=== PATIENT | female | born 1955 | race American Indian/Alaskan Native ===

== ENCOUNTER 2019-04-29 15:15 | Outpatient (CLI) | payer MEDICAID ==
--- NOTE | 2019-04-30 08:43 | Mammography Report ---
BILATERAL DIGITAL SCREENING MAMMOGRAM WITH CAD INDICATION: Routine screening mammography. Breast cancer survivor status post left partial mastectomy for DCIS 2017. TECHNIQUE: Digital bilateral 2D mammography was obtained in the craniocaudal and mediolateral obliq ue projections. This examination was interpreted with the benefit of Computer-Aided Detection analysi s. COMPARISON: 11/15/2017 bilateral screening mammogram and 02/10/2018 and 12/31/2017 left diagnostic mammogr ams from [place], [place] FINDINGS: Breast Density: The breasts are heterogeneously dense, which may obscure small masses. A left surgical excision with removal of 2 biopsy clips has been performed since the last mammogram. 2 left outer biopsy clips remain. No mass, suspicious architectural distortion or suspicious calcific ations. Mild right lower inner postsurgical scar. A few bilateral 9 calcifications. IMPRESSION:No mammographic evidence of malignancy. BI-RADS Category 2: Benign. No mammographic evidence of malignancy. Recommend routine screening ma mmography in one year. A "normal" or negative report should not discourage follow up or biopsy of a clinically significant f inding. A written summary of these findings will be mailed to the patient. The patient will be entered into a mammography reporting system which will generate a reminder letter for the patient's next appointmen t at the appropriate interval. The [employer] recommends yearly mammograms starting at age 40 and continuing as l arnulfo as a woman is in good health. Breast MRI is recommended for women with an approximate 20-25% or greater lifetime risk of breast cancer, including women with a strong family history of breast or ova elizabeth cancer or who have been treated for Hodgkin's disease. Signer Name: Washington Marie MD Signed: 04/30/2019 8:38 AM Workstation Name: [id number]
== END 2019-04-29 15:16 | disposition home or self-care (01) ==
LOC: SPVWC 15:15
PROVIDERS: ATTEND Hospitalist
DX: Z12.31 Encounter for screening mammogram for malignant neoplasm of breast (principal)
CPT/HCPCS: 77067

== ENCOUNTER 2020-06-01 11:05 | Outpatient (CLI) | payer OTHER ==
--- NOTE | 2020-06-01 12:28 | Mammography Report ---
DIGITAL SCREENING MAMMOGRAM WITH CAD, 06/01/2020 INDICATION: Routine screening mammography. SCREENING MAMMOGRAM TECHNIQUE: Digital bilateral 2D mammography was obtained in the craniocaudal and mediolateral obliq ue projections. This examination was interpreted with the benefit of Computer-Aided Detection analysi s. COMPARISON: 04/29/2019 FINDINGS: Breast Density: The breasts are heterogeneously dense, which may obscure small masses. There is no evidence of dominant mass, suspicious calcifications or architectural distortion in eithe r breast. Bilateral scars and left-sided biopsy change again noted IMPRESSION: Follow up recommendation: Routine yearly BI-RADS Category 2: Benign. A "normal" or negative report should not discourage follow up or biopsy of a clinically significant f inding. A written summary of these findings will be mailed to the patient. The patient will be entered into a mammography reporting system which will generate a reminder letter for the patient's next appointmen t at the appropriate interval. The [employer] recommends yearly mammograms starting at age 40 and continuing as l arnulfo as a woman is in good health. Breast MRI is recommended for women with an approximate 20-25% or greater lifetime risk of breast cancer, including women with a strong family history of breast or ova elizabeth cancer or who have been treated for Hodgkin's disease. Signer Name: Ernesto Perry MD Signed: 06/01/2020 12:23 PM Workstation Name: [id number]
== END 2020-06-01 11:06 | disposition home or self-care (01) ==
LOC: SPVWC 11:05
PROVIDERS: ATTEND Internal Medicine
DX: Z12.31 Encounter for screening mammogram for malignant neoplasm of breast (principal)
CPT/HCPCS: 77067

== ENCOUNTER 2021-08-09 10:25 | Outpatient (CLI) | payer OTHER ==
--- NOTE | 2021-08-09 16:22 | Mammography Report ---
DIGITAL SCREENING MAMMOGRAM WITH CAD, 08/09/2021 CLINICAL INFORMATION / INDICATION: Routine screening mammography. TECHNIQUE: Digital bilateral 2D mammography was obtained in the craniocaudal and mediolateral obliqu e projections. This examination was interpreted with the benefit of Computer-Aided Detection analysis . COMPARISON: 04/29/2019 FINDINGS: Breast Density: The breasts are heterogeneously dense, which may obscure small masses. No dominant mass, suspicious calcifications, or architectural distortion in either breast. Bilateral postsurgical scars. 2 biopsy clips are present in the left breast. There are a few benign scattered c alcifications bilaterally. No interval change. IMPRESSION: No mammographic evidence of malignancy. Follow up recommendation: Routine yearly BI-RADS Category 2: Benign. A "normal" or negative report should not discourage follow up or biopsy of a clinically significant f inding. A written summary of these findings will be mailed to the patient. The patient will be entered into a mammography reporting system which will generate a reminder letter for the patient's next appointmen t at the appropriate interval. The [employer] recommends yearly mammograms starting at age 40 and continuing as l arnulfo as a woman is in good health. Breast MRI is recommended for women with an approximate 20-25% or greater lifetime risk of breast cancer, including women with a strong family history of breast or ova elizabeth cancer or who have been treated for Hodgkin's disease. Signer Name: Shelley Hickey MD Signed: 08/09/2021 4:18 PM Workstation Name: [id number]
== END 2021-08-09 10:26 | disposition home or self-care (01) ==
LOC: SPVWC 10:25
PROVIDERS: ATTEND Internal Medicine
DX: Z12.31 Encounter for screening mammogram for malignant neoplasm of breast (principal)
CPT/HCPCS: 77067

== ENCOUNTER 2021-11-06 17:50 | Emergency (ER) | payer OTHER ==
[2021-11-06 18:41] VITALS: BP 144/67
[2021-11-06] MEDS ORDERED: TETANUS,DIPH,PERTUSS(ACELL) VACCINE 0.5 ML SYRINGE IM ONE (19:07)
[2021-11-06] MEDS ORDERED: LIDOCAINE (1%) 10 MG/1 ML VIAL 20 ML MDV INFILTRATI ONE (19:07)
--- NOTE | 2021-11-06 19:20 | Emergency Department Report ---
ED General Adult HPI - General Chief complaint: Wound/Laceration Stated complaint: LAC FINGER Time Seen by Provider: 11/06/21 18:50 Source: patient Mode of arrival: Ambulatory Limitations: No Limitations - History of Present Illness Initial comments: 66-year-old -[place] female patient presents with complaints of right middle finger and index finger lacerations today. Patient states she cut her fingers while cleaning the blades of a pure machine. She is unsure of her last tetanus vaccination. She denies being on blood thinners. No bony pain or difficulty moving her fingers per patient. She also denies any numbness/tingling or weakness in her fingers. Known drug allergies include penicillin - Related Data Previous Rx's Medication Instructions Recorded Last Taken Type Ibuprofen [Motrin 600 MG tab] 600 mg PO Q8H PRN #15 tablet 11/06/21 Unknown Rx Mupirocin [Bactroban 2% OINT] 1 applic TP TID 7 Days #1 tube 11/06/21 Unknown Rx Allergies Allergy/AdvReac Type Severity Reaction Status Date / Time Penicillins Allergy Severe Anaphylaxis Verified 11/06/21 18:41 ED Review of Systems ROS: Stated complaint: LAC FINGER Other details as noted in HPI Musculoskeletal: denies: joint swelling, arthralgia Skin: denies: change in color Neurological: denies: numbness, paresthesias ED Past Medical Hx - Past Medical History Previous Medical History?: Yes Additional medical history: thyroid - Surgical History Past Surgical History?: No - Medications Home Medications: Home Medications Medication Instructions Recorded Confirmed Last Taken Type Ibuprofen [Motrin 600 MG tab] 600 mg PO Q8H PRN #15 tablet 11/06/21 Unknown Rx Mupirocin [Bactroban 2% OINT] 1 applic TP TID 7 Days #1 tube 11/06/21 Unknown Rx ED Physical Exam - General Limitations: No Limitations General appearance: alert, in no apparent distress - Head Head exam: Present: atraumatic, normocephalic - Eye Eye exam: Present: normal appearance. Absent: scleral icterus - Respiratory Respiratory exam: Absent: respiratory distress - Cardiovascular Cardiovascular Exam: Present: regular rate - Neurological Exam Neurological exam: Present: alert, oriented X3, normal gait - Psychiatric Psychiatric exam: Present: normal affect, normal mood - Skin Skin exam: Present: warm, dry, normal color. Absent: intact (Small laceration noted to tip of right middle finger with active bleeding; small superficial nonbleeding laceration noted to tip of right index finger; no obvious foreign bodies or bony tenderness noted; patient has full range of motion of the fingers), rash ED Course Vital Signs 11/06/21 18:36 Temperature 98.2 F Pulse Rate 74 Respiratory 15 Rate Blood Pressure 144/67 O2 Sat by Pulse 98 Oximetry - Laceration /Wound Repair Finger Wound Length (cm): 2 Wound's Depth, Shape: linear Wound Explored: clean Irrigated w/ Saline (ccs): 50 Betadine Prep?: Yes Anesthesia: 1% Lidocaine Volume Anesthetic (ccs): 1 Wound Repaired With: sutures Suture Size/Type: 3:0 (ethilon) Number of Sutures: 6 (continuous ) Layer Closure?: No Sterile Dressing Applied?: Yes Progress: minimal bleeding occurred pt tolerated procedure well without any immediate complications ED Medical Decision Making - Medical Decision Making 66-year-old -[place] female patient presents with complaints of right middle finger and index finger lacerations today. Patient states she cut her fingers while cleaning the blades of a pure machine. She is unsure of her last tetanus vaccination. She denies being on blood thinners. No bony pain or di fficulty moving her fingers per patient. She also denies any numbness/tingling or weakness in her fingers. Known drug allergies include penicillin Tetanus vaccination updated. Sutures placed in right middle finger. Patient tolerated procedure well. Discussed wound care and signs and symptoms that should prompt immediate return to the ED with patient who verbalizes understanding. She is to return to the ED in 10 days for suture removal Critical care attestation.: If time is entered above; I have spent that time in minutes in the direct care of this critically ill patient, excluding procedure time. ED Disposition Clinical Impression: Laceration of finger Qualifiers: Encounter type: initial encounter Damage to nail status: without damage Foreign body presence: without foreign body Laterality: right Disposition: 01 HOME / SELF CARE / HOMELESS Is pt being admited?: No Condition: Stable Instructions: Sutured Wound Care, [id number] Additional Instructions: Please return to the emergency department in 10 days for suture removal Prescriptions: Mupirocin [Bactroban 2% OINT] 1 applic TP TID 7 Days #1 tube Ibuprofen [Motrin 600 MG tab] 600 mg PO Q8H PRN #15 tablet PRN Reason: Pain
[2021-11-06] MEDS ORDERED: SODIUM CHLORIDE 0.9% 1000 ML 2,000 ML ONE (19:45)
== END 2021-11-06 20:34 | disposition home or self-care (01) ==
LOC: ED 17:50
DX: S61.212A Laceration without foreign body of right middle finger without damage to nail, initial encounter (principal); S61.210A Laceration without foreign body of right index finger without damage to nail, initial encounter; Z88.0 Allergy status to penicillin; W45.8XXA Other foreign body or object entering through skin, initial encounter; Y93.E9 Activity, other interior property and clothing maintenance; Y92.89 Other specified places as the place of occurrence of the external cause; Y99.8 Other external cause status
CPT/HCPCS: 12001; 90471; 90715; 99282; J3490; J7030; Q0162